=== PATIENT | male | born 1980 | race Caucasian/White ===

== ENCOUNTER 2017-06-10 18:23 | Inpatient (IN) | payer BC ==
[2017-06-10] MEDS ORDERED: ONDANSETRON 4 MG/2 ML VIAL IVP ONE (19:17)
[2017-06-10] MEDS ORDERED: NS 1,000 ML IV ONE ×3 (19:17→20:47)
[2017-06-10] MEDS ORDERED: LORazepam 2 MG/ML INJ IVP ONE ×4 (19:17→20:46)
--- NOTE | 2017-06-10 19:32 | EDPHY ---
HPI/HX/ROS/PE/MDM Narrative: CHIEF COMPLAINT: Alcohol withdrawal HISTORY OF PRESENT ILLNESS: The patient is a 36 y/o male with a history of alcoholism, hypertension, and pancreatitis arriving today after consulting his PCP for withdrawal symptoms. He has been a heavy drinker off and on for 4 to 5 years with recent elevated liver enzymes. His last drink was around midnight, 19 hours ago. Since then he has been vomiting, sweating, anxious, and hypertensive. He denies hematemesis or other associated symptoms. He denies history of withdrawal but reports a former stay at a rehabilitation facility. He is unsure of medications used during his stay in rehab. He denies history of withdrawal seizures. His last episode of pancreatitis was April 2015. He denies illicit drug use, opiate use, or marijuana use. He reports e-cigarette use. No fever, chills, chest pain, shortness of breath, palpitations, diarrhea, urinary complaints, headache, lightheadedness. REVIEW OF SYSTEMS: Aside from elements discussed in the HPI, a comprehensive 10-point review of systems was reviewed and is negative. PAST MEDICAL HISTORY: Alcoholism, hypertension, pancreatitis SOCIAL HISTORY: Engaged, lives in [place], staying with parents in [place] VITAL SIGNS: Reviewed by me GENERAL: Well-developed, well-nourished, resting comfortably in no respiratory distress. Tremulous. No jaundice. HEENT: Atraumatic. Eyes: No icterus, no injection. Mouth: moist mucous membranes. Tongue vesiculations. No erythema or lesions. Neck: supple with no adenopathy. LUNGS: Clear to auscultation bilaterally, no wheezes, rhonchi or rales. CARDIAC: Tachycardic rate and rhythm, no rubs, murmurs or gallops. ABDOMEN: Soft, nontender, nondistended, bowel sounds normal. BACK: No CVA tenderness. EXTREMITIES: No trauma. No edema. Range of motion is normal throughout. NEURO: Alert and oriented, grossly nonfocal. SKIN: Warm and dry, no rash. PSYCHIATRIC: Normal mentation, no agitation. ED Course: The patient presents with alcohol withdrawal after 4 to 5 years of heavy use. He has been nauseated, vomiting, shaking, tachycardic, and hypertensive. On exam he is tremulous with tongue vesiculations. He has a history of pancreatitis. Plan for labs to evaluate liver and pancreas function, fluids, Ativan, and Librium. I reassessed this patient and found he has not completely stabilized. Plan for admission to monitor his withdrawal. I have spoken with the hospitalist service for admission for this patient. They agree to admit. The patient and his family agree to this course of action. 945: Patient's heart rate is 123, blood pressure 150/116. He has received 4 mg of Ativan and 1 dose of Librium. Patient is to be admitted to the step-down for aggressive control of his alcohol withdrawal. MDM: Differential diagnoses for the patient's symptom complex was considered including but not limited to alcohol withdrawal, alcohol withdrawal seizures, polysubstance abuse, intoxication, acute delirium tremens, alcoholic hallucinosis, electrolyte abnormality. - Data Points Laboratory Results: Laboratory Results 06/10/17 19:32 06/10/17 19:32 06/10/17 06/10/17 06/10/17 19:32 19:32 19:32 WBC RBC Hgb Hct MCV MCH MCHC RDW Plt Count MPV Neut % (Auto) Lymph % (Auto) [place] % (Auto) Eos % (Auto) Baso % (Auto) Nucleat RBC Rel Count Absolute Neuts (auto) Absolute Lymphs (auto) Absolute Monos (auto) Absolute Eos (auto) Absolute Basos (auto) Absolute Nucleated RBC Immature Gran % Immature Gran # PT 15.5 SEC H SEC (12.0-15.0) INR 1.21 H (0.83-1.16) Sodium 142 mEq/L mEq/L (135-145) Potassium 3.7 mEq/L mEq/L (3.5-5.2) Chloride 100 mEq/L mEq/L (97-110) Carbon Dioxide 28 mEq/l mEq/l (22-31) Anion Gap 14 mEq/L mEq/L (8-16) BUN 13 mg/dL mg/dL (7-23) Creatinine 0.9 mg/dL mg/dL (0.7-1.3) Estimated GFR > 60 Glucose 111 mg/dL H mg/dL (70-100) Calcium 9.3 mg/dL mg/dL (8.5-10.4) Total Bilirubin 1.6 mg/dL H mg/dL (0.1-1.4) Conjugated Bilirubin 0.5 mg/dL mg/dL (0.0-0.5) Unconjugated Bilirubin 1.1 mg/dL mg/dL (0.0-1.1) AST 72 IU/L H IU/L (17-59) ALT 117 IU/L H IU/L (21-72) Alkaline Phosphatase 97 IU/L IU/L (38-126) Total Protein 7.6 g/dL g/dL (6.3-8.2) Albumin 4.4 g/dL g/dL (3.5-5.0) Lipase 42 IU/L IU/L (23-300) Ethyl Alcohol < 10 mg/dL mg/dL (0-10) 06/10/17 19:32 WBC 11.14 10^3/uL H 10^3/uL (3.80-9.50) RBC 5.47 10^6/uL 10^6/uL (4.40-6.38) Hgb 17.9 g/dL H g/dL (13.7-17.5) Hct 50.1 % % (40.0-51.0) MCV 91.6 fL fL (81.5-99.8) MCH 32.7 pg pg (27.9-34.1) MCHC 35.7 g/dL g/dL (32.4-36.7) RDW 13.5 % % (11.5-15.2) Plt Count 267 10^3/uL 10^3/uL (150-400) MPV 11.0 fL fL (8.7-11.7) Neut % (Auto) 58.4 % % (39.3-74.2) Lymph % (Auto) 32.5 % % (15.0-45.0) Dorado % (Auto) 7.6 % % (4.5-13.0) Eos % (Auto) 0.6 % % (0.6-7.6) Baso % (Auto) 0.6 % % (0.3-1.7) Nucleat RBC Rel Count 0.0 % % (0.0-0.2) Absolute Neuts (auto) 6.50 10^3/uL 10^3/uL (1.70-6.50) Absolute Lymphs (auto) 3.62 10^3/uL H 10^3/uL (1.00-3.00) Absolute Monos (auto) 0.85 10^3/uL H 10^3/uL (0.30-0.80) Absolute Eos (auto) 0.07 10^3/uL 10^3/uL (0.03-0.40) Absolute Basos (auto) 0.07 10^3/uL 10^3/uL (0.02-0.10) Absolute Nucleated RBC 0.00 10^3/uL 10^3/uL (0-0.01) Immature Gran % 0.3 % % (0.0-1.1) Immature Gran # 0.03 10^3/uL 10^3/uL (0.00-0.10) PT INR Sodium Potassium Chloride Carbon Dioxide Anion Gap BUN Creatinine Estimated GFR Glucose Calcium Total Bilirubin Conjugated Bilirubin Unconjugated Bilirubin AST ALT Alkaline Phosphatase Total Protein Albumin Lipase Ethyl Alcohol Medications Given: Discontinued Medications Chlordiazepoxide HCl (Librium) 25 mg PO EDNOW ONE Stop: 06/10/17 20:47 Last Admin: 06/10/17 20:47 Dose: 25 mg Chlordiazepoxide HCl (Librium) 25 mg PO EDNOW ONE Stop: 06/10/17 20:48 Last Admin: 06/10/17 21:36 Dose: Not Given Sodium Chloride (Ns) 1,000 mls @ 0 mls/hr IV ONCE ONE; Wide Open PRN Reason: Protocol Stop: 06/10/17 19:18 Last Admin: 06/10/17 19:38 Dose: 1,000 mls Sodium Chloride (Ns) 1,000 mls @ 0 mls/hr IV ONCE ONE PRN Reason: Wide Open Stop: 06/10/17 20:47 Last Admin: 06/10/17 20:47 Dose: 1,000 mls Sodium Chloride (Ns) 1,000 mls @ 0 mls/hr IV ONCE ONE; Wide Open PRN Reason: Protocol Stop: 06/10/17 20:48 Last Admin: 06/10/17 20:54 Dose: Not Given Lorazepam (Ativan Injection) 1 mg IVP EDNOW ONE Stop: 06/10/17 19:18 Last Admin: 06/10/17 19:38 Dose: 1 mg Lorazepam (Ativan Injection) 1 mg IVP EDNOW ONE Stop: 06/10/17 19:26 Last Admin: 06/10/17 19:38 Dose: 1 mg Lorazepam (Ativan Injection) 2 mg IVP EDNOW ONE Stop: 06/10/17 20:47 Last Admin: 06/10/17 20:47 Dose: 2 mg Lorazepam (Ativan Injection) 2 mg IVP EDNOW ONE Stop: 06/10/17 20:47 Last Admin: 06/10/17 21:37 Dose: Not Given Ondansetron HCl (Zofran) 4 mg IVP EDNOW ONE Stop: 06/10/17 19:18 Last Admin: 06/10/17 19:38 Dose: 4 mg General Time Seen by Provider: 06/10/17 19:16 Initial Vital Signs: Initial Vital Signs Temperature (C) 37.0 C 06/10/17 18:28 Heart Rate 128 H 06/10/17 18:28 Respiratory Rate 18 06/10/17 18:28 Blood Pressure 157/112 H 06/10/17 18:28 O2 Sat (%) 91 L 06/10/17 18:28 O2 Delivery Mode Room Air Allergies/Adverse Reactions: No Known Allergies Allergy (Verified 09/29/15 20:33) Home Medications: Medication Instructions Recorded Bupropion HCl [Wellbutrin Xl] 300 mg PO DAILY 06/10/17 Losartan Potassium [Cozaar 25 mg 25 mg PO DAILY 06/10/17 (*)] Multivitamins [Multivitamin (*)] 1 each PO DAILY 06/10/17 Departure - Departure Disposition: [facility] Inpatient Acute Clinical Impression: Alcohol withdrawal Qualifiers: Complication of substance-induced condition: uncomplicated Qualified Code(s): F10.230 - Alcohol dependence with withdrawal, uncomplicated Condition: Fair Report Scribed for: Tiffany Kraft Report Scribed by: Judith Mckeon Date of Report: 06/10/17 Time of Report: 19:32 Physician Review and Approval Statement: Portions of this note were transcribed by a medical office manager. I personally performed a history, physical exam, medical decision making, and confirmed accuracy of information the transcribed note.
[2017-06-10 19:43] LABS: PLATELET COUNT 267 10^3/uL (150-400)
[2017-06-10 19:52] LABS: INR 1.21 (0.83-1.16); PROTIME(PATIENT) 15.5 SEC (12.0-15.0)
[2017-06-10] MEDS ORDERED: chlordiazePOXIDE 25 MG CAP ONE (20:40)
[2017-06-10] MEDS ORDERED: chlordiazePOXIDE 25 MG CAP PO ONE ×2 (20:46→20:47)
[2017-06-10] MEDS ORDERED: ONDANSETRON 4 MG/2 ML VIAL IVP PRN (22:08)
[2017-06-10] MEDS ORDERED: ONDANSETRON DISINTEGRATING 4 MG TAB PO PRN (22:08)
[2017-06-10] MEDS ORDERED: PROMETHAZINE HCL 25 MG/ML INJ IVP PRN (22:08)
--- NOTE | 2017-06-10 23:49 | GHP ---
[f rep st] HISTORY AND PHYSICAL DATE OF ADMISSION: 06/10/2017 HISTORY OF PRESENT ILLNESS: The patient is a 36-year-old gentleman with a history of alcoholism and pancreatitis with pseudocyst, who presents after voluntarily stopping drinking yesterday. He present s with alcohol withdrawal symptoms with tremors, agitation, and nausea but no vomiting. He does not have hallucinations. He does not have formication. He does not have melena. He does not have brigh t red blood per rectum, nor does he have jaundice. He says he has been drinking heavily since about the day after [place]. He took it easy a little b it before the holidays. He notes he has been drinking a lot in the evening, does not drink all day. 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 His parents are present at the bedside. He occasionally s mokes an E-cigarette but otherwise does not use tobacco. No fever, chills, cough. REVIEW OF SYSTEMS: Complete 10-point review of systems conducted and negative except as noted in the HPI. PAST MEDICAL HISTORY: 1. Alcoholism. He went to [facility] a couple of years ago and had a year of sobriety. 2. Pancreatitis with pseudocyst. He is lost to followup, but he does not have abdominal pain. 3. Alcoholic hepatitis. 4. Hypertension. ALLERGIES: No known drug allergies. HOME MEDICATIONS: Multivitamin, losartan, and bupropion. FAMILY HISTORY: Mother has hypertension. PHYSICAL EXAMINATION: VITAL SIGNS: Temp 37.0, blood pressure 157/112, pulse 128, breathing 18 times a minute, on room air. GENERAL: Tremulous but otherwise in no acute distress. HEENT: Sclerae anicteric. Oropharynx clear. Mucous membranes moist. NECK: Supple without lymphadenopathy or JVD. LUNGS: Clear to auscultation bilaterally. HEART: S1, S2. ABDOMEN: Soft, nontender, non distended. LOWER EXTREMITIES: No edema. Calves are nontender. SKIN: Without rash. NEUROLOGIC: Exam is nonfocal. DATA REVIEWED: LABS: Sodium 142, potassium 3.7, chloride 100, bicarb 28, BUN 13, creatinine 0.9, gl ucose 111. Bilirubin 1.6, AST 72, ALT 117, LFTs otherwise normal. Alcohol level is less than 10. I NR is 1.2. White count 11, hematocrit 50, MCV normal, platelets 267,000. There is no imaging. I have discussed the case Dr. Tiffany Kraft. ASSESSMENT AND PLAN: A 36-year-old gentle with alcoholism presents with alcohol withdrawal symptoms following stopping drinking. 1. Alcohol withdrawal. I am concerned this is going to be severe because he has fairly significant withdrawal after just 1 day without alcohol. He received 4 mg of Ativan and 50 mg of Librium in the emergency department, so I will not provide him with a loading dose. I will put him on Librium and A tivan p.r.n. Will see if patient eats normal meals. He does not need thiamine. Will give him famot idine for GI prophylaxis. 2. Tachycardia secondary to alcohol withdrawal. 3. Hypertension. Will continue his losartan. I expect him to have elevated blood pressures in the setting of alcohol withdrawal. 4. History of pancreatitis. He is not complaining abdominal pain and has an unremarkable exam. Cody l hold off on imaging. 5. Prophylaxis. Pharmacologic prophylaxis is indicated with [id number] heparin. DISPOSITION: Inpatient status. /[id number]/MODL
[2017-06-10] MEDS: NS 1,000 ML IV SCH (23:54)
[2017-06-11] MEDS: LORazepam 1 MG TAB PO PRN ×5 (00:21→20:34)
[2017-06-11] MEDS: chlordiazePOXIDE 25 MG CAP PO PRN ×4 (00:21→22:24)
--- NOTE | 2017-06-11 01:55 | PDMN ---
Medical Necessity Medical necessity: C/M review: Acute and persistent alcohol withdrawal, tachycardia related to alcohol withdrawal, heart rate 128-113,tremors, agitation , WBC 11.14, INR 1.21, AST 72, ALT 117. requiring IV fluids, ongoing CIWA protocol, IV Ativan as needed, comorbid patient voluntarily stopped drinking 04/2018, history of alcoholism, pancreatitis with pseudocyst, alcoholic hepatitis, hypertension. MD anticipates > 2 MN LOS for ongoing med nec for eval and TX of above.
[2017-06-11] MEDS: METOPROLOL TARTRATE 25 MG TAB PO SCH ×3 (03:31→20:34)
[2017-06-11] MEDS: NS 1,000 ML IV SCH (06:45)
[2017-06-11 06:54] LABS: PLATELET COUNT 168 10^3/uL (150-400)
[2017-06-11] MEDS: ENOXAPARIN 40 MG/0.4 ML SYR SC SCH (07:38)
[2017-06-11] MEDS: FAMOTIDINE 20 MG TAB PO SCH ×2 (07:39→20:34)
[2017-06-11] MEDS: buPROPion XL 150 MG TAB PO SCH (07:39)
[2017-06-11] MEDS: MULTIVITAMINS 1 EACH TAB PO SCH (07:39)
[2017-06-11] MEDS: LOSARTAN POTASSIUM 25 MG TAB PO SCH (07:39)
[2017-06-11] MEDS ORDERED: PNEUMOCOCCAL 0.5ML VACCINE VIAL IM ONE (08:01)
[2017-06-11] MEDS ORDERED: FLU VACC QS 2017-18 (3YR+)/PF 0.5 ML SYR (FLUARIX QUAD) IM ONE (08:01)
[2017-06-11] MEDS ORDERED: PROTOCOL CALCIUM 1 DOSE IV PRN (09:06)
--- NOTE | 2017-06-11 09:07 | HOSPPROG ---
Hospitalist Progress Note Assessment/Plan: #Acute Etoh w/d: doing well on CIWA -wants to quit. Was sober for year after being in [facility] #Hypocalcemia: check ionized #h/o pancreatitis and pseudocyst: no abd pain. Lipase normal #Chronic back pain #Mild alcoholic hepatitis: repeat LFTs #HTN: Losartan #Diet: regular #Disp: can transfer to Med-surg if CIWA scores improve today Subjective: itching this morning, VEGA Objective: Vital Signs Temp Pulse Resp BP Pulse Ox 36.6 C 105 H 22 H 148/99 H 92 06/11/17 08:00 06/11/17 08:00 06/11/17 08:00 06/11/17 08:00 06/11/17 08:00 Laboratory Results 06/11/17 06:40 06/11/17 06:40 06/10/17 06/11/17 06/12/17 05:59 05:59 05:59 Intake Total 3240 500 Output Total 300 Balance 3240 200 PT 15.5 SEC (12.0-15.0) H 06/10/17 19:32 INR 1.21 (0.83-1.16) H 06/10/17 19:32 - Physical Exam Constitutional: obese Eyes: PERRL Ears, Nose, Mouth, Throat: moist mucous membranes Cardiovascular: regular rate and rhythym, no murmur, rub, or gallop Respiratory: no respiratory distress, no rales or rhonchi Gastrointestinal: normoactive bowel sounds, soft, non-tender abdomen, No tenderness Genitourinary: no bladder fullness Skin: warm Musculoskeletal: full muscle strength Neurologic: AAOx3, CN II-XII Intact, other (moderate tongue fasciulations and hand tremors) Psychiatric: interacting appropriately ICD10 Worksheet Patient Problems: Problems Problem Status Onset Lumbosacral stenosis Acute Pancreatitis, alcoholic, acute Acute Pancreatic pseudocyst Acute Pancreatitis Acute Pancreatic pseudocyst/cyst Acute Dehydration Acute Abdominal pain Acute Alcohol withdrawal Acute
[2017-06-11] MEDS ORDERED: PROTOCOL K PHOSPHATE 1 DOSE IV PRN (09:35)
[2017-06-11] MEDS ORDERED: PROTOCOL MAGNESIUM 1 DOSE IV PRN (09:35)
[2017-06-11] MEDS ORDERED: CALCIUM GLUCONATE 50 ML IV ONE (10:47)
[2017-06-11] MEDS ORDERED: MAGNESIUM SULF 2 GM/WATER 50 ML IV ONE (10:47)
--- NOTE | 2017-06-11 17:53 | ASMTCMCOM ---
CM Note CM Note Notes: 36 year old male admitted for ETOH W/D. He has a hx of pancreatitis, ETOH hepititis, HTN. He reports that he spent 3mos in [facility] . Patient given other ETOH tx res and encouraged to continue his program. He is interested in an intensive out-pt program and will try to access his ins resources. Date Signed: 06/11/2017 05:52 PM Electronically Signed By:Hilda Serrato LCSW
--- NOTE | 2017-06-11 18:47 | GCON ---
[f rep st] CONSULTATION CRITICAL CARE CONSULTATION DATE OF CONSULTATION: 06/11/2017 REASON FOR CONSULTATION: Intensive care unit evaluation and management of alcohol withdrawal. HISTORY: The patient is a very pleasant 36-year-old, who voluntarily stopped drinking 2 days ago. Oniel sorenson has a history of chronic alcohol abuse and has had problems with withdrawal and pancreatitis in the past. His family got involved in encouraging him to stop, and he did so. He has been drinking heav juju since . He has been to rehab previously and did have a 1-year alcohol hiatus. His symp toms on admission were increasing agitation, tremors, and nausea. PAST MEDICAL HISTORY: Remarkable primarily for his alcohol issues, pancreatitis and pseudocyst, hist ory of alcoholic hepatitis, and hypertension, for which he takes losartan. There is a history of dep ression, for which he takes bupropion. SOCIAL HISTORY: The patient works in the [employer] business. He is single, with a supportive family. Significant tobacco is negative. He will smoke an E-cigarette several times per week. Vaughn gs are denied. FAMILY HISTORY: Hypertension. REVIEW OF SYSTEMS: A 10-point review of systems is negative, except as mentioned above DRUG ALLERGIES: No known drug allergies. PHYSICAL EXAMINATION: GENERAL: Reveals a relatively large young man who is sitting up partially in bed. VITAL SIGNS: Blood pressure is 143/92, heart rate 97 with sinus rhythm on the monitor. Respir atory rate is 22. He is afebrile. On room air, saturations are 93%. HEENT: Unremarkable for lymph adenopathy or thyromegaly. There is no jaundice. There is no jugular venous distention. Mucous mem branes are moist. CHEST: Clear bilaterally. Breath sounds are somewhat diminished secondary to bod y habitus. HEART: Regular in rate and rhythm. There is no gallop or murmur. ABDOMEN: Soft, nonte nder. There is no subdiaphragmatic tenderness. GENITOURINARY: No Quiroga catheter is in place. EXTR EMITIES: Within normal limits. There is no edema and there are no cords. SKIN: There is no rash. NEUROLOGIC: He is nonfocal, moves all extremities equally with good strength. He does have a mild tremor when his hands are extended. Cognition is intact. He is not agitated. He is oriented and co operative. LABORATORY DATA: White blood cell count is 7000, hematocrit 41, platelets 168,000. PT was 15.5 on a dmission. Basic metabolic panel is within normal limits. Calcium is low at 7.9, with a low ionized calcium at 1.07. Phosphorus is normal, magnesium low at 1.8. Bilirubin is mildly elevated at 1.8. AST is 48 with an ALT of 79. Albumin is 3.2. Blood alcohol on admission was negative. In the last s ection on edges. ASSESSMENT: 1. Alcohol withdrawal. He has had relatively high CIWA scores, as high as 20. However, he is doing well on scheduled Librium and p.r.n. Ativan. He is receiving thiamin. He has no seizures and is do ing well with the CIWA withdrawal protocol. 2. Hypertension. He is on losartan and metoprolol. The latter can be increased if blood pressures remain high along with heart rate. 3. Metabolic. Hypomagnesemia and hypocalcemia are present. He is on the electrolyte replacement pr otocol. 4. History of pancreatitis. None evident on this admission. He has no abdominal pain. Lipase is n ormal. PLAN AND RECOMMENDATIONS: The patient will be kept in the intensive care unit for now. He will be m onitored closely. The CIWA protocol will be continued. Scheduled Librium and as-needed Ativan will be continued. Antihypertensive therapy will be given. If needed, metoprolol can be increased to 25 mg p.o. b.i.d. Laboratory will be followed. On discharge, he will need to find an outpatient rehabilitation program to help him continue abstinen ce from alcohol. Further plans and recommendations will be made based on his progress over the next 12-24 hours. /[id number]/MODL
[2017-06-11] MEDS ORDERED: HALOPERIDOL LACT 5 MG/ML INJ IVP PRN (23:41)
[2017-06-11] MEDS ORDERED: PROTOCOL POTASSIUM 1 DOSE MISC PRN (23:54)
[2017-06-12] MEDS: DEXMEDETOMIDINE IN 0.9 % NACL 100 ML IV SCH ×8 (00:10→20:59)
[2017-06-12] MEDS: LORazepam 2 MG/ML INJ IVP PRN (01:15)
[2017-06-12] MEDS: LORazepam 2 MG/ML INJ IVP SCH ×5 (01:18→23:46)
[2017-06-12 02:06] LABS: PLATELET COUNT 127 10^3/uL (150-400)
--- NOTE | 2017-06-12 02:14 | HOSPPROG ---
Hospitalist Progress Note Assessment/Plan: [facility] Night Float Note Paged by RN regarding patient with increasing CIWA score to 25 and increasing agitation and confusion. Patient turning off monitors and IV pumps. He expressed desire to leave the hospital. He was anxious regarding plans for discharge and possibility of inpatient rehab program. I evaluated patient earlier in the shift shortly after escalated ativan dosing ordered. Patient was increasingly confused and unable to make appropriate decisions. HR and BPs elevated. precedex added and patient was still interactive. after discussion with patient and reassurance regarding availability of CM/SW for discharge planning patient agreed to stay in hospital for additional treatment. med retainer signed at this time. I returned to re-evaluate patient. he is more comfortable, sedated. HR 80s, BPs low normal but requiring precedex gtt. restraints ordered. transfer ordered to ICU side. Objective: Vital Signs Temp Pulse Resp BP Pulse Ox 36.5 C 115 H 26 H 171/108 H 92 06/11/17 23:18 06/11/17 23:18 06/11/17 23:18 06/11/17 23:18 06/11/17 23:18 Laboratory Results 06/12/17 02:00 06/10/17 06/11/17 06/12/17 05:59 05:59 05:59 Intake Total 3240 2100 Output Total 300 Balance 3240 1800 PT 15.5 SEC (12.0-15.0) H 06/10/17 19:32 INR 1.21 (0.83-1.16) H 06/10/17 19:32 ICD10 Worksheet Patient Problems: Problems Problem Status Onset Lumbosacral stenosis Acute Pancreatitis, alcoholic, acute Acute Pancreatic pseudocyst Acute Pancreatitis Acute Pancreatic pseudocyst/cyst Acute Dehydration Acute Abdominal pain Acute Alcohol withdrawal Acute
[2017-06-12] MEDS ORDERED: MAGNESIUM SULF 1 GM/DEXTROSE 100 ML IV ONE (02:50)
[2017-06-12] MEDS ORDERED: POTASSIUM Cl (KCl) 100 ML IV SCH (03:00)
[2017-06-12] MEDS ORDERED: LR 1,000 ML IV SCH (03:30)
[2017-06-12] MEDS ORDERED: LR 1,000 ML IV ONE (03:30)
[2017-06-12] MEDS: POTASSIUM Cl (KCl) 10 MEQ in NS 100 ML IV SCH ×2 (04:45→07:51)
[2017-06-12] MEDS: ENOXAPARIN 40 MG/0.4 ML SYR SC SCH (08:50)
[2017-06-12] MEDS: buPROPion XL 150 MG TAB PO SCH (09:05)
[2017-06-12] MEDS: MULTIVITAMINS 1 EACH TAB PO SCH (09:05)
[2017-06-12] MEDS: LOSARTAN POTASSIUM 25 MG TAB PO SCH ×2 (09:05→21:49)
[2017-06-12] MEDS: METOPROLOL TARTRATE 25 MG TAB PO SCH (09:05)
[2017-06-12] MEDS: FAMOTIDINE 20 MG TAB PO SCH ×2 (09:05→20:31)
--- NOTE | 2017-06-12 12:32 | PDINTPN ---
Patient Support Representative Progress Note Assessment/Plan: Assessment: * Alcoholism * History of pancreatitis * Alcohol withdrawals-on CIWA protocol * Hypertension-blood pressure stable Plan: Continue Precedex and CIWA protocol Close cardiovascular monitoring Adequate pain control Adequate nutrition Subjective: Sedated but arousable. Objective: Vital Signs Temp Pulse Resp BP Pulse Ox 36.7 C 77 19 115/75 97 06/12/17 08:00 06/12/17 08:00 06/12/17 08:00 06/12/17 08:00 06/12/17 08:00 Laboratory Results 06/12/17 02:00 06/12/17 02:00 06/11/17 06/12/17 06/13/17 05:59 05:59 05:59 Intake Total 3240 3725 Output Total 800 Balance 3240 2925 PT 15.5 SEC (12.0-15.0) H 06/10/17 19:32 INR 1.21 (0.83-1.16) H 06/10/17 19:32 - Time Spent With Patient Time Spent With Patient: 35 min of time spent with patient, over 1/2 involved with coordination of care counseling Physical Exam - Physical Exam General Appearance: other (Sedated), No alert EENT: PERRL/EOMI Neck: non-tender, full range of motion, supple, normal inspection Respiratory: chest non-tender, lungs clear, normal breath sounds Cardiac/Chest: normal peripheral pulses, regular rate, rhythm Peripheral Pulses: 2+: carotid (R), carotid (L), femoral (R), femoral (L), dorsalis-pedis (R), dorsalis-pedis (L) Abdomen: normal bowel sounds, non-tender, soft Male Genitalia: deferred Rectal: deferred Lymphatic: no adenopathy Extremities: normal range of motion, non-tender, normal inspection, normal capillary refill Neuro/Psych: No alert ICD10 Worksheet Patient Problems: Problems Problem Status Onset Alcohol withdrawal Acute Abdominal pain Acute Dehydration Acute Lumbosacral stenosis Acute Pancreatic pseudocyst Acute Pancreatic pseudocyst/cyst Acute Pancreatitis Acute Pancreatitis, alcoholic, acute Acute
--- NOTE | 2017-06-12 18:47 | HOSPPROG ---
Hospitalist Progress Note Assessment/Plan: Assessment: 36-year-old male presents with acute alcohol withdrawal Plan: #Acute Etoh withdraw: severe worsening overnight, patient placed on detainer b/ c Dr. Sofia did not feel like he had the capacity to make rational, safe decisions and the patient was attempting to leave, which would have placed himself in grave danger - very responsive to combination of precedex + ativan scheduled IV, continue - patient initially expressed that he wanted to get sober, cont detox - monitor CBC to ensure no e/o infxn/aspiration #Acute encephalopathy: evidenced by global brain dysfunction characterized by agitation, anxiety, non-linear behavior and activity, all of which are acute change from baseline, 2/2 alcohol withdraw psychosis originally, now toxic effects of precedex #Hypocalcemia: mild, cont to monitor #h/o pancreatitis and pseudocyst: no abd pain. Lipase normal #Chronic back pain: currently holding opiates #Mild alcoholic hepatitis: ALT elevated,check HCV #HTN: Hold losartan, hypotensive this AM Diet. regular if awake and safe to swallow PPx. High risk, lovenox Code. Full Dispo. ADD uncertain Subjective: patient w/o agitation Objective: Vital Signs Temp Pulse Resp BP Pulse Ox 36.7 C 85 21 H 136/93 H 96 06/12/17 08:00 06/12/17 18:00 06/12/17 18:00 06/12/17 18:00 06/12/17 18:00 Laboratory Results 06/12/17 02:00 06/12/17 02:00 06/11/17 06/12/17 06/13/17 05:59 05:59 05:59 Intake Total 3240 3725 1638 Output Total 800 2000 Balance 3240 2925 -362 PT 15.5 SEC (12.0-15.0) H 06/10/17 19:32 INR 1.21 (0.83-1.16) H 06/10/17 19:32 - Physical Exam Constitutional: no apparent distress, appears nourished, not in pain Cardiovascular: regular rate and rhythym, no murmur, rub, or gallop Respiratory: no respiratory distress, no rales or rhonchi, clear to auscultation Gastrointestinal: normoactive bowel sounds, soft, non-tender abdomen, no palpable masses Neurologic: No facial droop Psychiatric: not anxious, encephalopathic, other (somnolent, responsive to tactile stimuli), No agitated ICD10 Worksheet Patient Problems: Problems Problem Status Onset Lumbosacral stenosis Acute Pancreatitis, alcoholic, acute Acute Pancreatic pseudocyst Acute Pancreatitis Acute Pancreatic pseudocyst/cyst Acute Dehydration Acute Abdominal pain Acute Alcohol withdrawal Acute
[2017-06-12] MEDS: ACETAMINOPHEN 325 MG TAB PO PRN (20:39)
[2017-06-12] MEDS ORDERED: METOPROLOL TARTRATE 5 MG/5 ML INJ IVP ONE (23:29)
[2017-06-13] MEDS: DEXMEDETOMIDINE IN 0.9 % NACL 100 ML IV SCH ×3 (00:08→05:59)
[2017-06-13] MEDS: LORazepam 2 MG/ML INJ IVP SCH ×3 (06:13→17:58)
[2017-06-13 06:54] LABS: PLATELET COUNT 144 10^3/uL (150-400)
[2017-06-13] MEDS: LOSARTAN POTASSIUM 25 MG TAB PO SCH (08:03)
[2017-06-13] MEDS: ENOXAPARIN 40 MG/0.4 ML SYR SC SCH (08:04)
[2017-06-13] MEDS: FAMOTIDINE 20 MG TAB PO SCH ×2 (08:04→21:02)
[2017-06-13] MEDS: MULTIVITAMINS 1 EACH TAB PO SCH (08:04)
[2017-06-13] MEDS: buPROPion XL 150 MG TAB PO SCH (08:04)
--- NOTE | 2017-06-13 11:05 | PDINTPN ---
[facility] Coordinator Progress Note Assessment/Plan: Assessment: * Alcoholism * History of pancreatitis * Alcohol withdrawals-on CIWA protocol * Hypertension-blood pressure stable Plan: Continue CIWA protocol Start weaning of Precedex PT/OT Begin ambulation Close cardiovascular monitoring Adequate pain control Adequate nutrition 06/13/17 11:03 Subjective: Sitting up in chair. Resting comfortably. Awake and alert. Objective: Vital Signs Temp Pulse Resp BP Pulse Ox 37.1 C 85 22 H 113/69 97 06/13/17 08:00 06/13/17 10:00 06/13/17 10:00 06/13/17 10:00 06/13/17 10:00 Laboratory Results 06/13/17 06:20 06/13/17 06:20 06/12/17 06/13/17 06/14/17 05:59 05:59 05:59 Intake Total 3725 4311 Output Total 800 2850 Balance 2925 1461 PT 15.5 SEC (12.0-15.0) H 06/10/17 19:32 INR 1.21 (0.83-1.16) H 06/10/17 19:32 - Time Spent With Patient Time Spent With Patient: 35 min of time spent with patient, over half involved with coordination of care counseling. Case discussed with nursing as well as hospitalist. Physical Exam - Physical Exam General Appearance: alert, no apparent distress EENT: PERRL/EOMI, normal ENT inspection Neck: non-tender, full range of motion, supple, normal inspection Respiratory: chest non-tender, lungs clear, normal breath sounds Cardiac/Chest: normal peripheral pulses, regular rate, rhythm Abdomen: normal bowel sounds, non-tender, soft Male Genitalia: deferred Rectal: deferred Skin: normal color, warm/dry Extremities: normal range of motion, non-tender, normal inspection, normal capillary refill Neuro/Psych: alert ICD10 Worksheet Patient Problems: Problems Problem Status Onset Alcohol withdrawal Acute Abdominal pain Acute Dehydration Acute Lumbosacral stenosis Acute Pancreatic pseudocyst Acute Pancreatic pseudocyst/cyst Acute Pancreatitis Acute Pancreatitis, alcoholic, acute Acute
[2017-06-13] MEDS: LORazepam 1 MG TAB PO PRN ×2 (12:08→22:32)
[2017-06-13] MEDS: LORazepam 2 MG/ML INJ IVP PRN ×2 (15:00→20:00)
--- NOTE | 2017-06-13 15:10 | ASMTCAGE ---
CAGE Do you feel you ought to Answers: Yes cut down on your drinking or drug use? Do people annoy you by Answers: No criticizing your drinking or drug use? Do you feel guilty about Answers: Yes your drinking or drug use? 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 Date Signed: 06/13/2017 03:09 PM Electronically Signed By:Heather Peters RN
--- NOTE | 2017-06-13 17:16 | HOSPPROG ---
Hospitalist Progress Note Assessment/Plan: Assessment: 36-year-old male presents with acute alcohol withdrawal Plan: #Acute Etoh withdraw: severe, improving, has capacity, detainer lifted, remains tremulous/anxious - very responsive to combination of precedex + ativan scheduled IV, adjusted to scheduled ativan + PRN ativan today - patient initially expressed that he wanted to get sober, cont detox - monitor CBC to ensure no e/o infxn/aspiration #Acute encephalopathy: evidenced by global brain dysfunction characterized by agitation, anxiety, non-linear behavior and activity, all of which are acute change from baseline, 2/2 alcohol withdraw psychosis originally, now toxic effects of precedex - improving, mentation substantially better today #Hypocalcemia: mild, cont to monitor #h/o pancreatitis and pseudocyst: no abd pain. Lipase normal #Chronic back pain: currently holding opiates #Mild alcoholic hepatitis: ALT elevated,check HCV #HTN: Restart losartan 25mg Diet. regular PPx. High risk, lovenox Code. Full Dispo. ADD uncertain, remains clinically unresolved Subjective: patient reports ongoing anxiety, does not recall yesterday Objective: Vital Signs Temp Pulse Resp BP Pulse Ox 37.0 C 114 H 19 161/88 H 99 06/13/17 16:00 06/13/17 16:00 06/13/17 16:00 06/13/17 16:00 06/13/17 16:00 Laboratory Results 06/13/17 06:20 06/13/17 06:20 06/12/17 06/13/17 06/14/17 05:59 05:59 05:59 Intake Total 3725 4311 720 Output Total 800 2850 Balance 2925 1461 720 PT 15.5 SEC (12.0-15.0) H 06/10/17 19:32 INR 1.21 (0.83-1.16) H 06/10/17 19:32 - Physical Exam Constitutional: no apparent distress, appears nourished, not in pain, uncomfortable Cardiovascular: regular rate and rhythym, no murmur, rub, or gallop, No edema Respiratory: no respiratory distress, no rales or rhonchi, clear to auscultation Gastrointestinal: normoactive bowel sounds, soft, non-tender abdomen, no palpable masses, distension (mild) Neurologic: AAOx3, sensation intact bilaterally, other (visible tremulousness), No asterixes Psychiatric: not encephalopathic, anxious, other (concentration 12/02), No agitated ICD10 Worksheet Patient Problems: Problems Problem Status Onset Lumbosacral stenosis Acute Pancreatitis, alcoholic, acute Acute Pancreatic pseudocyst Acute Pancreatitis Acute Pancreatic pseudocyst/cyst Acute Dehydration Acute Abdominal pain Acute Alcohol withdrawal Acute
[2017-06-13] MEDS: METOPROLOL TARTRATE 25 MG TAB PO SCH (21:02)
[2017-06-14] MEDS: LORazepam 2 MG/ML INJ IVP SCH ×3 (01:15→11:54)
[2017-06-14] MEDS: LORazepam 1 MG TAB PO PRN ×5 (02:43→22:22)
[2017-06-14] MEDS: LOSARTAN POTASSIUM 25 MG TAB PO SCH (06:03)
[2017-06-14 06:24] LABS: PLATELET COUNT 150 10^3/uL (150-400)
[2017-06-14] MEDS: ACETAMINOPHEN 325 MG TAB PO PRN (07:10)
[2017-06-14] MEDS: buPROPion XL 150 MG TAB PO SCH (08:07)
[2017-06-14] MEDS: METOPROLOL TARTRATE 25 MG TAB PO SCH ×2 (08:08→20:32)
[2017-06-14] MEDS: MULTIVITAMINS 1 EACH TAB PO SCH (08:08)
[2017-06-14] MEDS: ENOXAPARIN 40 MG/0.4 ML SYR SC SCH (08:08)
[2017-06-14] MEDS: FAMOTIDINE 20 MG TAB PO SCH ×2 (08:08→20:32)
[2017-06-14 09:07] LABS: HEPATITIS B SURFACE ANTIGEN NEGATIVE (NEGATIVE)
[2017-06-14 09:13] LABS: HEPATITIS A ANTIBODY IGM (BCH) NEGATIVE (NEGATIVE); HEPATITIS B CORE AB IGM NEGATIVE (NEGATIVE)
--- NOTE | 2017-06-14 09:18 | PDINTPN ---
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 Markedly improved * Hypertension-blood pressure stable Plan: Continue CIWA protocol DC Precedex PT/OT Begin ambulation Close cardiovascular monitoring Adequate pain control Adequate nutrition Likely okay for transfer to floor Subjective: Resting comfortably. Ambulating the halls without problems. Alert and orient x3 Objective: Vital Signs Temp Pulse Resp BP Pulse Ox 37.1 C 104 H 20 170/95 H 92 06/14/17 07:44 06/14/17 07:44 06/14/17 07:44 06/14/17 07:44 06/14/17 07:44 Laboratory Results 06/14/17 05:59 06/14/17 05:59 06/13/17 06/14/17 06/15/17 05:59 05:59 05:59 Intake Total 4311 2070 Output Total 2850 Balance 1461 2070 PT 15.5 SEC (12.0-15.0) H 06/10/17 19:32 INR 1.21 (0.83-1.16) H 06/10/17 19:32 - Time Spent With Patient Time Spent With Patient: 35 min of time spent with patient, over 1/2 involved with coordination of care or counseling Physical Exam - Physical Exam General Appearance: alert, no apparent distress EENT: PERRL/EOMI, normal ENT inspection, pharynx normal, TMs normal Neck: non-tender, full range of motion, supple, normal inspection Respiratory: chest non-tender, lungs clear, normal breath sounds Cardiac/Chest: normal peripheral pulses, regular rate, rhythm Peripheral Pulses: 2+: carotid (R), carotid (L), femoral (R), femoral (L), dorsalis-pedis (R), dorsalis-pedis (L) Abdomen: normal bowel sounds, non-tender, soft Male Genitalia: deferred Rectal: deferred Skin: normal color, warm/dry Extremities: normal range of motion, non-tender, normal inspection, normal capillary refill Neuro/Psych: no motor/sensory deficits, alert, normal mood/affect, oriented x 3 ICD10 Worksheet Patient Problems: Problems Problem Status Onset Alcohol withdrawal Acute Abdominal pain Acute Dehydration Acute Lumbosacral stenosis Acute Pancreatic pseudocyst Acute Pancreatic pseudocyst/cyst Acute Pancreatitis Acute Pancreatitis, alcoholic, acute Acute
[2017-06-14 09:24] LABS: HEPATITIS C ANTIBODY TOTAL NEGATIVE (NEGATIVE)
[2017-06-14] MEDS ORDERED: METOPROLOL TARTRATE 25 MG TAB PO ONE (12:38)
--- NOTE | 2017-06-14 12:38 | ASMTCMCOM ---
CM Note CM Note Notes: Patient said he did not remember getting EtOH resources from [facility], so I spoke with him about this. He is interested in an IOP program because he needs to be working. We talked about [facility] since it's close to his house. I called [facility] to inquire about IOP; they need patient to call and schedule appointment. I gave patient the phone number for the facility. He is motivated to quit drinking because he has a fiance. Current CM Discharge plan: home with IOP chemical dependency follow up Date Signed: 06/14/2017 12:38 PM Electronically Signed By:Heather Peters RN
[2017-06-14] MEDS ORDERED: LACTULOSE 20 GM/30 ML UDCUP PO PRN (12:42)
[2017-06-14] MEDS ORDERED: POLYETHYLENE GLYCOL 3350 17 GM PKT PO PRN (12:42)
[2017-06-14] MEDS ORDERED: MAGNESIUM HYDROXIDE 30 ML UDCUP PO PRN (12:42)
[2017-06-14] MEDS ORDERED: BISACODYL 10 MG SUPP PR PRN (12:42)
--- NOTE | 2017-06-14 12:42 | HOSPPROG ---
Hospitalist Progress Note Assessment/Plan: Assessment: 36-year-old male presents with acute alcohol withdrawal c/b acute encephalopathy Plan: #Acute Etoh withdraw: severe, improving, has capacity,remains tremulous/anxious/ tachycardic/sensory delusions - patient initially expressed that he wanted to get sober, cont detox - ativan not controlling his anxiety well, adjust to scheduled librium + PRN ativan for CIWA scoring, gauge effect - d/w Dr. Hernández on rounds, we agreed to cont SDU care until CIWA consistently at a threshold acceptable for med surg (10) #Acute encephalopathy: evidenced by global brain dysfunction characterized by agitation, anxiety, non-linear behavior and activity, all of which are acute change from baseline, 2/2 alcohol withdraw psychosis originally, now toxic effects of precedex - resolved #Hypocalcemia: mild, cont to monitor #h/o pancreatitis and pseudocyst: no abd pain. Lipase normal #Chronic back pain: currently holding opiates #Mild alcoholic hepatitis: ALT elevated, HCV pending #HTN: Restarted losartan 25mg, added metoprolol tart PO for elevated BP/ tachycardia Diet. regular PPx. High risk, lovenox Code. Full Dispo. ADD uncertain, remains clinically unresolved Subjective: patient w/ ongoing anxiety, sensory delusions Objective: Vital Signs Temp Pulse Resp BP Pulse Ox 36.7 C 95 20 160/124 H 95 06/14/17 11:49 06/14/17 11:49 06/14/17 11:49 06/14/17 11:49 06/14/17 11:49 Laboratory Results 06/14/17 05:59 06/14/17 05:59 06/13/17 06/14/17 06/15/17 05:59 05:59 05:59 Intake Total 4311 2070 Output Total 2850 Balance 1461 2070 PT 15.5 SEC (12.0-15.0) H 06/10/17 19:32 INR 1.21 (0.83-1.16) H 06/10/17 19:32 - Physical Exam Constitutional: no apparent distress, appears nourished, not in pain, uncomfortable Cardiovascular: no murmur, rub, or gallop, tachycardia, No systolic murmur, No irregularly irregular, No edema Respiratory: no respiratory distress, no rales or rhonchi, clear to auscultation Gastrointestinal: normoactive bowel sounds, soft, non-tender abdomen, no palpable masses, distension (mild) Neurologic: AAOx3, sensation intact bilaterally, other (mild tremor), No weakness, No asterixes Psychiatric: not encephalopathic, thought process linear, anxious, No agitated ICD10 Worksheet Patient Problems: Problems Problem Status Onset Lumbosacral stenosis Acute Pancreatitis, alcoholic, acute Acute Pancreatic pseudocyst Acute Pancreatitis Acute Pancreatic pseudocyst/cyst Acute Dehydration Acute Abdominal pain Acute Alcohol withdrawal Acute
[2017-06-14] MEDS: chlordiazePOXIDE 25 MG CAP PO SCH ×2 (16:58→22:22)
[2017-06-14] MEDS: SENNOSIDES/DOCUSATE SODIUM TAB PO SCH (20:30)
[2017-06-15] MEDS: LORazepam 1 MG TAB PO PRN ×4 (06:46→21:39)
[2017-06-15] MEDS: FAMOTIDINE 20 MG TAB PO SCH ×2 (08:44→21:39)
[2017-06-15] MEDS: METOPROLOL TARTRATE 25 MG TAB PO SCH (08:44)
[2017-06-15] MEDS: chlordiazePOXIDE 25 MG CAP PO SCH (08:44)
[2017-06-15] MEDS: MULTIVITAMINS 1 EACH TAB PO SCH (08:44)
[2017-06-15] MEDS: LOSARTAN POTASSIUM 25 MG TAB PO SCH (08:44)
[2017-06-15] MEDS: buPROPion XL 150 MG TAB PO SCH (08:44)
--- NOTE | 2017-06-15 09:05 | PDINTPN ---
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 [facility] number at 8 * Hypertension-blood pressure stable Plan: Continue CIMI protocol PT/OT Continue ambulation Likely okay for transfer to floor 06/15/17 09:03 Subjective: Up ambulating the halls. Comfortable. Denies any pain. Objective: Vital Signs Temp Pulse Resp BP Pulse Ox 36.6 C 91 18 154/113 H 94 06/15/17 07:46 06/15/17 07:46 06/15/17 07:46 06/15/17 07:46 06/15/17 07:46 Laboratory Results 06/14/17 05:59 06/14/17 05:59 06/14/17 06/15/17 06/16/17 05:59 05:59 05:59 Intake Total 207 500 Balance 2069 500 PT 15.5 SEC (12.0-15.0) H 06/10/17 19:32 INR 1.21 (0.83-1.16) H 06/10/17 19:32 - Time Spent With Patient Time Spent With Patient: 35 min of time spent with patient a, over 1/2 involved with coordination of care or counseling Physical Exam - Physical Exam General Appearance: WD/WN, alert, no apparent distress EENT: PERRL/EOMI, normal ENT inspection Neck: non-tender, full range of motion, supple, normal inspection Respiratory: chest non-tender, lungs clear, normal breath sounds Cardiac/Chest: normal peripheral pulses, regular rate, rhythm Peripheral Pulses: 2+: carotid (R), carotid (L), femoral (R), femoral (L), dorsalis-pedis (R), dorsalis-pedis (L) Abdomen: normal bowel sounds, non-tender, soft Male Genitalia: deferred Rectal: deferred Skin: normal color, warm/dry Neuro/Psych: no motor/sensory deficits, alert, normal mood/affect, oriented x 3 ICD10 Worksheet Patient Problems: Problems Problem Status Onset Alcohol withdrawal Acute Abdominal pain Acute Dehydration Acute Lumbosacral stenosis Acute Pancreatic pseudocyst Acute Pancreatic pseudocyst/cyst Acute Pancreatitis Acute Pancreatitis, alcoholic, acute Acute
[2017-06-15] MEDS: ENOXAPARIN 40 MG/0.4 ML SYR SC SCH (10:08)
[2017-06-15] MEDS: SENNOSIDES/DOCUSATE SODIUM TAB PO SCH ×2 (10:09→23:03)
[2017-06-15] MEDS ORDERED: LOSARTAN POTASSIUM 25 MG TAB PO ONE (11:56)
--- NOTE | 2017-06-15 17:39 | HOSPPROG ---
Hospitalist Progress Note Assessment/Plan: Assessment: 36-year-old male presents with acute alcohol withdrawal c/b acute encephalopathy Plan: #Acute Etoh withdraw: severe, improving, has capacity, remains tremulous/ anxious w/ sensory delusions - patient initially expressed that he wanted to get sober, cont detox - adjust scheduled librium to 25 AM, 50 PM + PRN ativan for CIWA scoring, gauge effect - counseled patient that sensory delusions may persist for some time, but we will discharge on a librium taper to help alleviate those at night - counseled patient regarding outpt alcoholism tx resources including naltraxone and antabuse, he has outpt program arranged and will also be seeing a mental health provider for his anxiety #Acute encephalopathy: evidenced by global brain dysfunction characterized by agitation, anxiety, non-linear behavior and activity, all of which are acute change from baseline, 2/2 alcohol withdraw psychosis originally, now toxic effects of precedex - resolved #Hypocalcemia: mild, cont to monitor #h/o pancreatitis and pseudocyst: no abd pain. Lipase normal #Chronic back pain: currently holding opiates #Mild alcoholic hepatitis: ALT elevated, HCV neg #HTN: Increased losartan, stopped bblocker given potential mood/energy side effects Diet. regular PPx. High risk, lovenox Code. Full Dispo. ADD 06/16, remains clinically unresolved Subjective: sensory delusions very vivid last night, ongoing anxiety Objective: Vital Signs Temp Pulse Resp BP Pulse Ox 36.6 C 95 20 162/100 H 96 06/15/17 15:53 06/15/17 15:53 06/15/17 15:53 06/15/17 15:53 06/15/17 15:53 Laboratory Results 06/14/17 05:59 06/14/17 05:59 06/14/17 06/15/17 06/16/17 05:59 05:59 05:59 Intake Total 207 500 Balance 2070 500 PT 15.5 SEC (12.0-15.0) H 06/10/17 19:32 INR 1.21 (0.83-1.16) H 06/10/17 19:32 - Time Spent With Patient Time Spent with Patient: greater than 35 minutes Time Spent with Patient: Greater than 35 minutes spent on this patients care, greater than 50% of time spent counseling, educating, and coordinating care regarding the above mentioned plan. - Pending Discharge Pending Discharge Within 24 Hours: Yes Pending Discharge Date: 06/16/17 Pending Discharge Time: 11:00 - Physical Exam Constitutional: no apparent distress, not in pain, uncomfortable Cardiovascular: tachycardia Neurologic: AAOx3, No facial droop Psychiatric: not encephalopathic, anxious, No agitated ICD10 Worksheet Patient Problems: Problems Problem Status Onset Lumbosacral stenosis Acute Pancreatitis, alcoholic, acute Acute Pancreatic pseudocyst Acute Pancreatitis Acute Pancreatic pseudocyst/cyst Acute Dehydration Acute Abdominal pain Acute Alcohol withdrawal Acute
[2017-06-15] MEDS ORDERED: chlordiazePOXIDE 25 MG CAP PO SCH (21:00)
[2017-06-15 22:53] VITALS: RESP 16
[2017-06-16 07:54] VITALS: BP 133/94; PULSE 85; TEMP 97.8; O2SAT 97
[2017-06-16] MEDS: ENOXAPARIN 40 MG/0.4 ML SYR SC SCH (08:12)
[2017-06-16] MEDS: SENNOSIDES/DOCUSATE SODIUM TAB PO SCH ×2 (08:12→08:19)
[2017-06-16] MEDS: buPROPion XL 150 MG TAB PO SCH (08:12)
[2017-06-16] MEDS: LORazepam 1 MG TAB PO PRN ×2 (08:12→12:29)
[2017-06-16] MEDS: FAMOTIDINE 20 MG TAB PO SCH (08:13)
[2017-06-16] MEDS: MULTIVITAMINS 1 EACH TAB PO SCH (08:13)
[2017-06-16] MEDS ORDERED: LOSARTAN POTASSIUM 50 MG TAB PO SCH (09:00)
[2017-06-16] MEDS ORDERED: chlordiazePOXIDE 25 MG CAP PO SCH (09:00)
[2017-06-16] MEDS: LOSARTAN POTASSIUM 25 MG TAB PO SCH (09:15)
--- NOTE | 2017-06-16 15:07 | ASMTCMCOM ---
Date Signed: 06/16/2017 03:06 PM Electronically Signed By:Gill Cruz RN
--- NOTE | 2017-06-16 15:10 | ASMTCMCOM ---
CM Note CM Note Notes: Chart reviewed. Met with patient earlier today to review his discharge plan of care. He is to call [facility] to schedule an appointment for outpatient rehab. He verbalizes desire to get sober, has fiance and supportive parents. No needs for therapy physically. CM availabe should needs arise. Plan dc Independent. Date Signed: 06/16/2017 03:10 PM Electronically Signed By:Gill Cruz RN
--- NOTE | 2017-06-16 18:25 | PDDCSUM ---
Discharge Summary Discharge Summary: DISCHARGE SUMMARY FOLLOW-UP ITEMS: Arrange outpatient mental health services DATE OF ADMISSION: 06/10/2017 DATE OF DISCHARGE: 06/16/2017 DISCHARGE DIAGNOSES: 1. Severe acute alcohol withdrawal 2. Acute encephalopathy 3. Acute hypocalcemia 4. Mild acute alcoholic hepatitis 5. Chronic hypertension 6. Suspected underlying generalized anxiety disorder CONSULTATIONS: Pulmonary critical care PROCEDURES / IMAGING: None CHIEF COMPLAINT: Acute tremulousness and anxiety SUBJECTIVE: Patient is feeling mildly anxious time of discharge, he feels confident that he will be able to manage at home PHYSICAL EXAM ON DISCHARGE: Systolic blood pressure is 130-160, heart rate 80-90, afebrile overnight, very mild tremor in the bilateral upper extremities, patient is communicative, fully oriented, does not appear anxious HOSPITAL COURSE BY PROBLEM: The patient presented with severe acute alcohol withdrawal evidenced by tremulousness, tachycardia, anxiety, sensory delusions, and this escalated quite quickly, resulting in acute full op the events by global brain dysfunction characterized by agitation, anxiety, nonlinear behavior and activity , requiring a Precedex drip for stabilization in the intensive care unit. The patient's situation was stabilized on scheduled high-dose IV Ativan, Precedex, p.r.n. dosing. After it was stabilized, the patient is scheduled dosing was reduced, the Precedex drip was stopped, and the patient was transitioned to scheduled oral Librium. It took a couple days of titrating the Librium dosage and administering p.r.n. Ativan in order for the patient's symptoms to stabilized. His most pervasive symptoms were sensory delusions as well as ongoing anxiety and tachycardia. At the time of discharge, the patient is no longer tachycardic, he continues to experience some anxiety, but his sensory delusions have subsided. After extensive counseling with the patient, we agreed on a 6 day taper of his Librium, with 25 mg in the morning, 50 mg at night x2 days, then 25 mg twice daily x2 days, then 25 mg just at night for 2 days, then stop. The patient will seek reassessment by his primary care provider and mental health referral thereafter. He has also committed to getting outpatient alcohol detox and ongoing counseling. He likely has an under recognized generalized anxiety disorder, and this will be further assessed by an outpatient mental health provider. The patient also has concomitant chronic hypertension, for which she takes losartan 25 mg daily, and this was up titrated to 50 mg once daily to be followed up by his primary care provider. DISCHARGE MEDICATIONS: Please see official discharge medication reconciliation sheet in chart, Librium taper as outlined above, increase losartan to 50 mg once daily. DISCHARGE INSTRUCTIONS: Please follow up with primary care provider next week, receive mental health provider referral comma establish with outpatient detox and counseling.
== END 2017-06-16 15:14 | disposition home or self-care (01) | DRG 896 ==
LOC: OBSVTOIN 22:10 → F2N 23:40 → F3E 06-15 18:12
PROVIDERS: ADMIT Internal Medicine; ATTEND Internal Medicine
DX: F10.239 Alcohol dependence with withdrawal, unspecified (principal); G93.40 Encephalopathy, unspecified; R45.1 Restlessness and agitation; K70.10 Alcoholic hepatitis without ascites; I10 Essential (primary) hypertension; E83.51 Hypocalcemia; F41.9 Anxiety disorder, unspecified
CPT/HCPCS: 96374; G0008; G0009; G0472; G0480; J0610; J1630; J1650; J2060; J2405; J2550; J3475

== ENCOUNTER 2018-03-15 22:35 | Emergency (ER) | payer BC ==
[2018-03-15] MEDS ORDERED: NS 1,000 ML IV ONE (22:38)
--- NOTE | 2018-03-15 22:42 | EDPHY ---
H & P Source: Patient, EMS - Personal History Tetanus Vaccine Date: < 10 years - Medical/Surgical History Hx Asthma: No Hx Chronic Respiratory Disease: No Hx Diabetes: No Hx Cardiac Disease: No Hx Renal Disease: No Hx Cirrhosis: No Hx Alcoholism: Yes Hx HIV/AIDS: No Hx Splenectomy or Spleen Trauma: No Other PMH: appy, bone cyst L4, HTN, GERD; r knee MCL; pancreatitis; sleep apnea w/ CPAP, ETOH - Social History Smoking Status: Current some day smoker Time Seen by Provider: 03/15/18 22:39 HPI/ROS: HPI CHIEF COMPLAINT: Polysubstance overdose, possible alcohol intoxication, possible benzo overdose HISTORY OF PRESENT ILLNESS: 37-year-old male, presents emergency room by EMS for possible benzodiazepine and alcohol overdose. Is reported by EMS that his family became concerned called 911 as he was hard to wake up and very lethargic. EMS arrived to find him breathing 30 times per minute rather shallow. They placed him on a non-rebreather brought here to the emergency room. They report that he possibly overdosed on Ativan, and possibly alcohol. Of note the patient arrives emergency room very lethargic however does respond to painful stimuli. He does have a room air saturation of 89%. Heart rate 98. Will need to closely monitor. Is reported they found a bottle of Ativan 1 mg pills and is missing 10 pills. Past Medical History: Unknown medical history at this time Past Surgical History: Unknown surgical history Social History: Unknown but reported by EMS possibly benzodiazepine and alcohol Family History: Unknown ROS REVIEW OF SYSTEMS: Extremity limited due to patient's mental state. Exam Constitutional lethargic, triage nursing summary reviewed, vital signs reviewed , Eyes normal conjunctivae and sclera, EOMI, PERRLA. HENT normal inspection, atraumatic, moist mucus membranes, no epistaxis, neck supple/ no meningismus, no raccoon eyes. Respiratory tachypneic, clear to auscultation bilaterally, normal breath sounds, no respiratory distress, no wheezing. Cardiovascular rate normal, regular rhythm, no murmur, no edema, distal pulses normal. Gastrointestinal soft, non-tender, no rebound, no guarding, normal bowel sounds, no distension, no pulsatile mass. Genitourinary no CVA tenderness. Musculoskeletal no midline vertebral tenderness, full range of motion, no calf swelling, no tenderness of extremities, no meningismus, good pulses, neurovascularly intact. Skin pink, warm, & dry, no rash, skin atraumatic. Neurologic lethargic. Does move everything responds to painful stimuli. Psychiatric normal mood/affect. Heme/Lymph/Immune no lymphadenopathy. Differential Diagnosis: Includes but is not limited to in a particular order: Polysubstance abuse, drug overdose, benzodiazepine overdose, alcohol ingestion, polysubstance overdose Medical Decision Making: Plan for this patient will need to monitor him very closely for respiratory depression, low threshold for intubation given benzodiazepine, alcohol overdose. . Obtain basic blood work, full equipment monitor phototypesetting, pulse ox, EKG. ABG. Re-evaluation: Serum alcohol level 444. 2330: Patient continues to protect his airway. He responds to painful stimuli. Able to tell me his name. However appears very somnolent. Alcohol level noted to be 444. Will continue to monitor closely. There is 10 pills of 1 mg Ativan missing from his bottle. Will watch closely for further sedation. If he becomes more sedate he may need intubation. 1235AM: Patient is now speaking coherently. Still intoxicated alcohol. Answering questions. Very sleepy. 0556: Patient is speaking coherently. Answers questions appropriately. Much more sober now. 0605: Patient alert and awake. Speaking in september. Has a flat affect feels depressed. Denies this being a suicidal attempt however given the amount of alcohol he drank and large quantity of benzos he ingested this could potentially be life-threatening. I placed him on M1 hold for severe depression and substance overdose. Patient need mental health evaluation. Patient placed on M1 hold at 6:05 a.m.. Signed over to Dr. Ramirez at 7:00 a.m.. Pending mental evaluation. Patient on M1 hold pending mental health evaluation. (Scotty Marr) Constitutional: Initial Vital Signs Temperature (C) 36.5 C 03/15/18 22:53 Heart Rate 90 03/15/18 22:53 Respiratory Rate 19 03/15/18 22:53 Blood Pressure 97/70 L 03/15/18 22:53 O2 Sat (%) 92 03/15/18 22:53 O2 Delivery Mode Room Air O2 (L/minute) 3 Allergies/Adverse Reactions: No Known Allergies Allergy (Verified 09/29/15 20:33) Home Medications: Medication Instructions Recorded Multivitamins [Multivitamin (*)] 1 each PO DAILY 06/10/17 LORazepam [Ativan] 1 mg PO 03/15/18 Metoprolol Tartrate 50 mg PO 03/15/18 Topiramate [Topamax 100MG (*)] 03/15/18 Venlafaxine 75MG (*) 03/15/18 traZODone [traZODONE 50MG (*)] 03/15/18 Medical Decision Making ED Course/Re-evaluation: Patient was signed out to me by Dr. Marr at 7:00 a.m. I saw the patient at 8: 05 a.m.. He stable and resting comfortably. Slightly hypertensive but no respiratory distress. Awaiting evaluation. Re-evaluation again at 11:15 a.m.. Patient is awake and alert and talking. The patient's mother is here. The patient, his mom, and I discussed laboratory evaluation, treatment plan including recommendation for mental health evaluation. They expressed understanding and agreement. (Dustin Ramirez) 3:45 p.m.-this patient was seen by mental health and felt appropriate for outpatient treatment of polysubstance abuse. I agree with this assessment. He denies suicidal or homicidal ideation. (Brooklyn Catalan) Care Turn Over: Care to Dr. Catalan at 3:00 p.m. (Dustin Ramirez) - Data Points Laboratory Results: Laboratory Results 03/15/18 22:40 03/15/18 22:40 03/16/18 11:30 Urine Opiates Screen NEGATIVE (NEGATIVE) Urine Barbiturates NEGATIVE (NEGATIVE) Ur Phencyclidine Scrn NEGATIVE (NEGATIVE) Ur Amphetamine Screen NEGATIVE (NEGATIVE) U Benzodiazepines Scrn NON-NEGATIVE H (NEGATIVE) Urine Cocaine Screen NEGATIVE (NEGATIVE) U Marijuana (THC) Screen NON-NEGATIVE H (NEGATIVE) Medications Given: Discontinued Medications Sodium Chloride (Ns) 1,000 mls @ 0 mls/hr IV EDNOW ONE; Wide Open PRN Reason: Protocol Stop: 03/15/18 22:39 Last Admin: 03/15/18 23:15 Dose: 1,000 mls Sodium Chloride (Ns) 1,000 mls @ 0 mls/hr IV ONCE ONE PRN Reason: Wide Open Stop: 03/16/18 03:26 Last Admin: 03/16/18 03:36 Dose: 1,000 mls Lorazepam (Ativan) 1 mg PO EDNOW ONE Stop: 03/16/18 15:20 Last Admin: 03/16/18 15:20 Dose: 1 mg Departure - Departure Disposition: Home, Routine, Self-Care Clinical Impression: Polysubstance abuse Condition: Good Instructions: Polysubstance Abuse (ED) Referrals: [facility],. [Clinic] - As per Instructions (Follow-up as directed.)
[2018-03-15 22:51] LABS: PLATELET COUNT 316 10^3/uL (150-400)
--- NOTE | 2018-03-15 23:58 | CPEKG ---
Test Reason : OPEN Blood Pressure : / mmHG Vent. Rate : 090 BPM Atrial Rate : 090 BPM P-R Int : 172 ms QRS Dur : 125 ms QT Int : 387 ms P-R-T Axes : 022 -20 029 degrees QTc Int : 474 ms Sinus rhythm Probable left atrial enlargement Right bundle branch block Inferior infarct, old Confirmed by Scotty Marr ([id number]) on 03/15/2018 11:57:54 PM Also confirmed by Scotty Marr ([id number]) on 03/15/2018 11:58:05 PM Referred By: Confirmed By:Scotty Marr
[2018-03-16] MEDS ORDERED: NS 1,000 ML IV ONE (03:25)
[2018-03-16] MEDS ORDERED: LORazepam 1 MG TAB ONE (15:18)
[2018-03-16] MEDS ORDERED: LORazepam 1 MG TAB PO ONE (15:19)
[2018-03-16 15:50] VITALS: BP 160/110
--- NOTE | 2018-03-16 17:55 | ASMTTCLDSP ---
TLC Discharge Disposition Disposition: Answers: Discharge Disposition Notes: Notes: In consultation with ed physician, Brooklyn Catalan MD and on-call psychiatrist Ziyad Michael MD both concurred that the pt does no appear to meet 27-65 criteria requiring inpatient psychiatric hospitalization and that the pt is not appear to be an imminent risk of harm to self due to a mental illness condition. Dr. Catalan provided verbal order read back vacating m1 hold at 15:50 hrs. Pt was given crisis hotline and 24-7 walk-in crisis center information. Discharge Concerns/Recommendations: Notes: PT was instructed to follow up with PCP and psychiatrist due to the severity of ETOH and Ativan over-consumption. PT was given [facility] crisis clinic as well. PT was advised to follow up with AA and to get a sponsor to help maintain sobreity. Psychiatrist vacating M1 Brooklyn Catalan MD Hold: Date and time M1 hold 03/16/2018 03:50 PM vacated (time format is hh:mm): Type of Hold: Answers: M1/72-hour Hold Hold initiated by: Answers: ED Physician Date Signed: 03/16/2018 05:55 PM Electronically Signed By:Sonny North
--- NOTE | 2018-03-16 19:29 | ASMTTLCEVL ---
TLC Evaluation - Basic Information Evaluation Start Date and 03/16/2018 04:00 PM Time Hospital Status Answers: M1 Hold 72-hr M1 Hold Start Date 03/16/2018 06:05 AM and Time Patient statement Notes: "I drank a little too much last night, I'm an alcoholic" Narrative Notes: PT is 36 yo causcasion male, never with no children, employed living with parents, presenting to the ED via EMS. PT's bal upon arrival was .444 pt also was believed to have taken 9-10 ativan. Pt denied SI Per ED Report "CHIEF COMPLAINT: Polysubstance overdose, possible alcohol intoxication, possible benzo overdose HISTORY OF PRESENT ILLNESS: 37-year-old male, presents emergency room by EMS for possible benzodiazepine and alcohol overdose. Is reported by EMS that his family became concerned called 911 as he was hard to wake up and very lethargic. EMS arrived to find him breathing 30 times per minute rather shallow. They placed him on a non-rebreather brought here to the emergency room. They report that he possibly overdosed on Ativan, and possibly alcohol.Of note the patient arrives emergency room very lethargic however does respond to painful stimuli. He does have a room air saturation of 89%. Heart rate 98. Will need to closely monitor. Is reported they found a bottle of Ativan 1 mg pills and is missing 10 pills. Differential Diagnosis: Includes but is not limited to in a particular order: Polysubstance abuse, drug overdose, benzodiazepine overdose, alcohol ingestion, polysubstance overdose Medical Decision Making: Plan for this patient will need to monitor him very closely for respiratory depression, low threshold for intubation given benzodiazepine, alcohol overdose. . Obtain basic blood work, full satellite project site monitor, pulse ox, EKG. ABG. Re-evaluation: Serum alcohol level 444. 2330: Patient continues to protect his airway. He responds to painful stimuli. Able to tell me his name. However appears very somnolent. Alcohol level noted to be 444. Will continue to monitor closely. There is 10 pills of 1 mg Ativan missing from his bottle. Will watch closely for further sedation. If he becomes more sedate he may need intubation. 1235AM: Patient is now speaking coherently. Still intoxicated alcohol. Answering questions. Very sleepy. 0556: Patient is speaking coherently. Answers questions appropriately. Much more sober now. 0605: Patient alert and awake. Speaking in september. Has a flat affect feels depressed. Denies this being a suicidal attempt however given the amount of alcohol he drank and large quantity of benzos he ingested this could potentially be life-threatening. I placed him on M1 hold for severe depression and substance overdose. Patient need mental health evaluation. Patient placed on M1 hold at 6:05 a.m.. Signed over to Dr. Ramirez at 7:00 a.m.. Pending mental evaluation. Patient on M1 hold pending mental health evaluation. (Scotty Marr) Allergies/Adverse Reactions: No Known Allergies Allergy (Verified 09/29/15 20:33) Home Medications: Medication Instructions Recorded Multivitamins [Multivitamin (*)] 1 each PO DAILY 06/10/17 LORazepam [Ativan] 1 mg PO 03/15/18 Metoprolol Tartrate 50 mg PO 03/15/18 Topiramate [Topamax 100MG (*)] 03/15/18 Venlafaxine 75MG (*) 03/15/18 traZODone [traZODONE 50MG (*)] Medical Decision Making ED Course/Re-evaluation: Patient was signed out to me by Dr. Marr at 7:00 a.m. I saw the patient at 8:05 a.m.. He stable and resting comfortably. Slightly hypertensive but no respiratory distress. Awaiting evaluation. Re-evaluation again at 11:15 a.m.. Patient is awake and alert and talking. The patient's mother is here. The patient, his mom, and I discussed laboratory evaluation, treatment plan including recommendation for mental health evaluation. They expressed understanding and agreement." Diagnosis History Notes: Major Depressive Disorder, recurrent, mild 296.31 (F33.0) Alcohol Intoxication, with use disorder, severe 303.00 (F10.229) Prior suicide attempts Notes: None Reported Prior hospitalizations Notes: None Reported Treatment Responses Notes: PT has a pschiatrist and therapist who helped him detox 10 days ago. History of violence Notes: None Reported Therapist: Dr. Velásquez Psychiatrist: Dr. Velásquez Medications (name, dosage, route, freq uency) Notes: Home Medications: Medication Instructions Recorded Multivitamins [Multivitamin (*)] 1 each PO DAILY 06/10/17 LORazepam [Ativan] 1 mg PO 03/15/18 Metoprolol Tartrate 50 mg PO 03/15/18 Topiramate [Topamax 100MG (*)] 03/15/18 Venlafaxine 75MG (*) 03/15/18 traZODone [traZODONE 50MG (*)] Allergies/Reaction Notes: None Reported Sleep Notes: 6 Hours a night Appetite Notes: Good Medical/Surgical history Notes: Blood pressure issues. Substance use history (frequency, intensity, his tory, duration) Notes: Etoh first drink at 17yo, Drank heavily last 6 years Drank 3 Times 1Pt of vodka a day, last night 1 Lt Family composition Notes: Parents together, and pt has 34 YO sister Need for family Answers: Yes participation in patient's care Family psychiatric/substance abuse history Notes: None reported Developmental history Notes: PT denied TBI, Denied any Concussions, Pt denied any childhood traumas, pt denied any emotional, physical or sexual abuse growing up. Abuse concerns Answers: None Marital status/children Notes: Unmarried with no children. Living situation Notes: Moved in with parents in May after a break up. 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 Notes: None reported Legal Notes: None reported Anabaptism/Spiritual Notes: Pt denied being spiritual or religous Leisure Notes: Reading, playing guitar, video games, watching sports. Collateral Notes: Collateral data obtained from pt's parents whom were at beside. Patient's strengths Answers: Artistic/Creative/Musical (Please select at least TWO strengths): Athletic Funny/Using Humor Honest Insightful Intelligent [place] Motivated for Treatment Supportive/Compassionate Supportive Family Willingness TLC Evaluation - Mental Status Exam Appearance: Answers: Appropriate Clean Disheveled Eye Contact: Answers: Good/Direct Mood: Answers: Depressed Irritable Sad Affect: Answers: Appropriate Anxious Flat Irritable Behavior: Answers: Appropriate Cooperative Impulsive Speech: Answers: Relevant Logical Clear Coherent Thought Process: Answers: Organized Oriented Alert Insight: Answers: Good Manic Signs/Symptoms Answers: Impulsivity Irritability Depression Answers: Difficulty Concentrating Signs/Symptoms: Diminished Pleasure Sad Mood Anxiety Signs/Symptoms Answers: Generalized Anxiety Hallucinations: Answers: None Current Stage of Change Answers: Relapse Pt reported to have Answers: No suicidal/self-injuring ideation/behavior? Pt reported to be making Answers: No suicidal/self-injuring threats? Pt reported to have Answers: No aggression/assault ideation/behavior? Pt reported to be making Answers: No aggression/assault threats? Pt exhibits inability to Answers: No care for self/grave disability? Ideation/behavior is Answers: No chronic? Patient has a specific Answers: No plan? Ideation involves Answers: No serious/lethal intent? Ideation has Answers: No delusional/hallucinatory content? History of Answers: No suicidal/self-injuring ideation, behavior, or threats? History of serious Answers: No physical harm to self/others while in treatment setting? TLC Evaluation - Suicide/Homicide Risk Suicide Risk Factors: Answers: Agitation Alcohol/Heavy Drug Use Anxiety/Panic, Severe Financial Difficulties Flat Affect Impulsivity Intoxication Single Homicide/violence risk Answers: Heavy Alcohol Use factors: Current Suicidal Answers: No Ideation? Current Suicide Ideation Denied any Frequency: Current Suicidal Ideation Answers: No in the Past 48 Hours? Current Suicidal Answers: No Ideation, Worst Ever? Suicide Internal Answers: [place] with Stress Protective Factors: Suicide External Answers: Positive Therapeutic Protective Factors: Relationships Social Support Ranking of patient's Answers: Low suicidal risk: Ranking of patient's Answers: Low homicidal risk: TLC Evaluation - Wrap-up BDI Total Score: 5 BDI Question #2 Score: 1 BDI Question #9 Score: 0 BSS Total Score: 0 AXIS I Diagnosis (include DSM-V and ICD-10 codes), must also be entered in [employer], which is the source of truth. Notes: Alcohol Intoxication, with use disorder, moderate/severe 303.00 (F10.229) Major Depressive Disorder, recurrent, mild 296.31 (F33.0) Evaluation End Date and 03/16/2018 07:00 PM Time (HH:ANISH): Date Signed: 03/16/2018 07:28 PM Electronically Signed By:Sonny North
== END 2018-03-16 15:57 | disposition home or self-care (01) ==
LOC: EDUNIT#
DX: T42.74XA Poisoning by unspecified antiepileptic and sedative-hypnotic drugs, undetermined, initial encounter (principal); F10.129 Alcohol abuse with intoxication, unspecified; Y90.8 Blood alcohol level of 240 mg/100 ml or more; G47.30 Sleep apnea, unspecified; I10 Essential (primary) hypertension; K21.9 Gastro-esophageal reflux disease without esophagitis
CPT/HCPCS: 80305; G0480

== ENCOUNTER 2018-06-05 18:42 | Emergency (ER) | payer BC ==
--- NOTE | 2018-06-05 19:20 | EDPHY ---
H & P Stated Complaint: etoh/fell lac to back of scalp/hit on table/denies neck pain Time Seen by Provider: 06/05/18 19:09 HPI/ROS: CHIEF COMPLAINT: Scalp laceration HISTORY OF PRESENT ILLNESS: Patient is a 37-year-old alcoholic man who was drinking today lost his balance and fell backwards. He hit on the floor. His a occipital laceration. He denies loss of consciousness. He denies neck pain. He denies syncope. He denies other injuries. No seizure-like activity. No nausea. No vomiting. No vision changes. Severity: Moderate Modifying factors: None REVIEW OF SYSTEMS: Constitutional: denies: chills, fever, recent illness, recent injury EENTM: denies: blurred vision, double vision, nose congestion Respiratory: denies: cough, shortness of breath Cardiac: denies: chest pain, irregular heart rate, lightheadedness, palpitations Gastrointestinal/Abdominal: denies: abdominal pain, diarrhea, nausea, vomiting, blood streaked stools Genitourinary: denies: dysuria, frequency, hematuria, pain Musculoskeletal: denies: joint pain, muscle pain Skin: See HPI Neurological: denies: headache, numbness, paresthesia, tingling, dizziness, weakness Hematologic/Lymphatic: denies: blood clots, easy bleeding, easy bruising Immunologic/allergic: denies: HIV/AIDS, transplant 10 systems reviewed and negative except as noted EXAM: GENERAL: Well-appearing, well-nourished and in no acute distress. HEAD: 3 cm occipital laceration full thickness, no crepitus or deformity., normocephalic. EYES: Pupils equal round and reactive to light, extraocular movements intact, sclera anicteric, conjunctiva are normal. ENT: TMs normal, nares patent, oropharynx clear without exudates. Moist mucous membranes. NECK: Normal range of motion, supple without lymphadenopathy or JVD. LUNGS: Breath sounds clear to auscultation bilaterally and equal. No wheezes rales or rhonchi. HEART: Regular rate and rhythm without murmurs, rubs or gallops. ABDOMEN: Soft, nontender, normoactive bowel sounds. No guarding, no rebound. No masses appreciated. BACK: No CVA tenderness, no spinal tenderness, step-offs or deformities EXTREMITIES: Normal range of motion, no pitting or edema. No clubbing or cyanosis. NEUROLOGICAL: Cranial nerves II through XII grossly intact. Normal speech, normal gait. 5/5 strength, normal movement in all extremities, normal sensation , normal reflexes PSYCH: Normal mood, normal affect. SKIN: Warm, dry, normal turgor, no visible rashes or lesions. Source: Patient Exam Limitations: No limitations - Personal History Current Tetanus Diphtheria and Acellular Pertussis (TDAP): Yes Tetanus Vaccine Date: < 10 years - Medical/Surgical History Hx Asthma: No Hx Chronic Respiratory Disease: No Hx Diabetes: No Hx Cardiac Disease: No Hx Renal Disease: No Hx Cirrhosis: No Hx Alcoholism: Yes Hx HIV/AIDS: No Hx Splenectomy or Spleen Trauma: No Other PMH: appy, bone cyst L4, HTN, GERD; r knee MCL; pancreatitis; sleep apnea w/ CPAP, ETOH - Family History Significant Family History: No pertinent family hx - Social History Smoking Status: Current some day smoker Alcohol Use: Heavy Constitutional: Initial Vital Signs Temperature (C) 36.5 C 06/05/18 18:45 Heart Rate 106 H 06/05/18 18:45 Respiratory Rate 19 06/05/18 18:45 Blood Pressure 141/99 H 06/05/18 18:45 O2 Sat (%) 94 06/05/18 18:45 O2 Delivery Mode Room Air Allergies/Adverse Reactions: No Known Allergies Allergy (Verified 06/05/18 18:44) Home Medications: Medication Instructions Recorded Multivitamins [Multivitamin (*)] 1 each PO DAILY 06/10/17 Metoprolol Tartrate 50 mg PO 03/15/18 Losartan Potassium 06/05/18 Medical Decision Making Procedures: Procedure: Laceration repair. Verbal consent was obtained from the patient. The 3 cm scalp laceration was anesthetized with 1% lidocaine with epi and bicarbonate locally infiltrated. The wound was irrigated copiously according to protocol, draped and explored to its base. It was approximately 1 cm deep. There were no deep structures involved. No tendon, nerve, or vascular injury was identified when explored. No foreign body was identified. The wound was repaired with 5 staple. The wound repair was simple without wound margin revisement or multiple flap alignment. The procedure was performed by myself. A dressing was then placed with sterile gauze and bacitracin. ED Course/Re-evaluation: I offered CT imaging with the patient declines. He denies having any concerning symptoms such as severe headache, vomiting, loss of consciousness, seizures etc. He would simply like to have his wound stapled and nothing more. Will observe. 9:30 p.m. patient tolerated the repair well. He continues to deny headache, vision changes, nausea vomiting etc. He continues to decline imaging. Parents feel safe taking home. Will discharge at this time. Differential Diagnosis: Partial list of the Differential diagnosis considered include but were not limited to; intoxication, scalp laceration, fracture, concussion and although unlikely based on the history and physical exam, I also considered intracranial hemorrhage, neck injury. I discussed these differential diagnoses and the plan with the patient as well as the usual and expected course. The patient understands that the diagnosis is provisional and that in medicine we are not always correct and that further workup is often warranted. Usual and customary warnings were given. All of the patient's questions were answered. The patient was instructed to return to the emergency department should the symptoms at all worsen or return, otherwise to followup with the physician as we discussed. Departure - Departure Disposition: Home, Routine, Self-Care Clinical Impression: Alcohol intoxication Qualifiers: Complication of substance-induced condition: uncomplicated Qualified Code(s): F10.920 - Alcohol use, unspecified with intoxication, uncomplicated Scalp laceration Qualifiers: Encounter type: initial encounter Qualified Code(s): S01.01XA - Laceration without foreign body of scalp, initial encounter Condition: Fair Instructions: Alcohol Intoxication (ED), Staple Care (ED) Additional Instructions: Return to have your rell removed in 10 days. Referrals: NONE *PRIMARY CARE P,. [Primary Care Provider] - As per Instructions Malinda Medeiros MD [Medical Doctor] - 2-3 days, if not improved
[2018-06-05 21:43] VITALS: BP 134/92
== END 2018-06-05 21:43 | disposition home or self-care (01) ==
PROC: 0HQ0XZZ Repair Scalp Skin, External Approach (ICD-10-PCS; principal; 2018-06-05)
DX: S01.01XA Laceration without foreign body of scalp, initial encounter (principal); F10.920 Alcohol use, unspecified with intoxication, uncomplicated; I10 Essential (primary) hypertension; K21.9 Gastro-esophageal reflux disease without esophagitis; F17.200 Nicotine dependence, unspecified, uncomplicated; W19.XXXA Unspecified fall, initial encounter; Y92.9 Unspecified place or not applicable; Y99.9 Unspecified external cause status; Y93.9 Activity, unspecified